=== PATIENT | male | born 1970 | race Caucasian/White ===

== ENCOUNTER 2023-10-10 17:18 | Emergency (ER) | payer SELFPAY ==
[2023-10-10 17:21] VITALS: BP 119/78; PULSE 102; RESP 16; TEMP 36.6; O2SAT 99
--- NOTE | 2023-10-10 17:28 | W.ED.EYEPROB ---
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 Patient has tried to irrigate the eye to remove the metal without any relief. Patient spouse also try to remove it. Patient appears nontoxic. Patient appears no acute distress. Review of Systems General: Reports: 10 or more systems reviewed and unremarkable except in HPI and below PFSH ED PFSH: Medical History (Updated 10/10/23 @ 17:42 by COLE Serna) Normal colonoscopy 01/2017 Sigmoidoscopy performed 01/2017 Surgical History H/O shoulder surgery 2006 RIGHT Physical Exam Const: COMMON NORMALS: alert HENMT: COMMON NORMALS: normocephalic HEAD & SCALP: normocephalic Eye: VISUAL ACUITY: Yes acuity normal CORNEA: Yes fluorescein used (Foreign body 4:00 within the iris, appears metallic) Chest: COMMONS NORMALS: normal inspection of the chest Resp: COMMON NORMALS: normal respiratory effort Back/Pelvis: COMMON NORMALS: thoracic and lumbar spine normal to inspection Extremity: COMMON NORMALS: normal to inspection Neuro: SENSORIUM/ORIENTATION: Yes alert Skin: COMMON NORMALS: turgor normal GENERAL SKIN EXAM: turgor normal Procedures FB Removal Eye Location: eye (L) Topical anesthetic used: tetracaine Foreign body: metal Evidence of corneal penetration: No Technique: needle Procedure performed under: direct visualization with magnification Post-procedure medication: ophthalmic antibiotic Patient tolerated procedure: well Complications: residual rust ring Course Vital Signs: Vital signs: Vital Signs Temperature 97.9 F 10/10/23 17:21 Pulse Rate 102 H 10/10/23 17:21 Respiratory Rate 16 10/10/23 17:21 Blood Pressure 119/78 10/10/23 17:21 Pulse Oximetry 99 10/10/23 17:21 Oxygen Delivery Me thod Room Air 10/10/23 17:21 MDM - Eye Problem Medical Decision Making 52-year-old male patient comes in today with complaints of foreign body to the left eye. On exam patient has a what appears to be a bess of metal to the 4 o'clock position within the iris of the left eye. No penetration of the cornea is noted. Pupils are equal and reactive. Acuity is normal. Differential diagnosis corneal laceration, foreign body, corneal ulceration, conjunctivitis. With tetracaine to anesthetize the eye a 22-gauge bevel needle was used to remove the foreign body. There was a residual rust ring. Patient was instructed to follow-up with eye rehab care assistant tomorrow to have the rust ring removed. Patient was started on Maxitrol eyedrops instructed to use eyedrops 4 times a day for the next 7 days. Patient reported understanding of care plan and need for follow-up or return to the ER. No radiology studies performed this visit Discharge Plan Discharge Patient Disposition: Home Clinical Impression: Foreign body in cornea, left eye, initial encounter Condition: Stable Prescriptions: No Action omega 4-vnc-nud-fish oil [Fish Oil] 1,000 mg (120 mg-180 mg) capsule 1 cap PO DAILY multivitamin [Multiple Vitamins] Tablet 1 tab PO QAM magnesium oxide 400 mg magnesium tablet 400 mg PO ONCE potassium chloride 2.5 mEq tablet PO DAILY fluticasone propionate 50 mcg/actuation spray,suspension 2 spray INTRANASAL BID ibuprofen 800 mg tablet 800 mg PO Q8H Qty: 60 3RF oseltamivir [Tamiflu] 75 mg capsule 75 mg PO BID Qty: 10 0RF lisinopril 40 mg tablet 40 mg PO DAILY Qty: 90 0RF omeprazole 20 mg capsule,delayed release(DR/EC) 20 mg PO DAILY Qty: 90 0RF amlodipine 10 mg tablet 10 mg PO DAILY Qty: 90 0RF Discharge Orders: Discharge ED (Routine); Ordered 10/10/23 Ordered By: Hollis Mendoza Referrals: Jayne Kennedy MD [Primary Care Provider] - Discharge Diet: Usual diet Discharge Activity: Increase activity as tolerated Patient Instructions: Eye Foreign Body (ED) Activity Restrictions/Additional Instructions: You need to follow-up with eye rehab care assistant tomorrow for repeat evaluation of the eye and removal of rust ring. Return to ER for worsening symptoms such as vision change, fever greater than 100.4, or new concerns. Coding Level of Care Code ED Contract Technical Writer for Geeta Tatum
[2023-10-10] MEDS: fluorescein 1 mg Strip EYE-LEFT (17:41)
[2023-10-10] MEDS: tetracaine 0.5% Op Soln 4 mL Btl 1 DROP EYE-LEFT (17:42)
[2023-10-10] MEDS: neomycin-poly-dex Op 5 mL Btl 2 DROP EYE-LEFT (17:42)
[2023-10-10 17:46] VITALS: BP 116/75; PULSE 87; O2SAT 94
[2023-10-10 17:48] VITALS: BP 116/75; PULSE 87; O2SAT 94
== END 2023-10-10 17:48 | disposition home or self-care (01) ==
PROVIDERS: Emergency Provider Nurse Practitioner Family; Family Provider Family Medicine; PCP Family Medicine
DX: T15.02XA Foreign body in cornea, left eye, initial encounter (principal); W44.D0XA Magnetic metal object unspecified, entering into or through a natural orifice, initial encounter
CPT/HCPCS: 65220; 99283